=== PATIENT | female | born 1950 | race Hispanic/Latino ===

== ENCOUNTER 2017-04-22 07:27 | Day surgery (SDC) | payer MEDICARE ==
[2017-04-16 09:51] VITALS: BMI 26.5
[2017-04-22 08:15] VITALS: PULSE 55; RESP 18
[2017-04-22] MEDS ORDERED: Lidocaine 1% Inj (20ml) ONE (09:43)
[2017-04-22] MEDS ORDERED: Bupivacaine 0.5% Inj(30mL) ONE (09:43)
[2017-04-22 11:06] VITALS: BP 133/72; TEMP 97.6; O2SAT 98
--- NOTE | 2017-04-22 11:10 | PCM.SURG1 ---
Surgeon's Initial Post Op Note - Surgeon's Notes Surgeon: Jenni Chemistry Technician: Hermes Pre-Operative Diagnosis: Right knee sebaceous cyst Operative Findings: right knee sebaceous cyst Post-Operative Diagnosis: right knee sebaceous cyst Operation Performed: excision of right knee sebaceous cyst Specimen/Specimens Removed: sebaceous cyst of right knee Estimated Blood Loss: EBL {In ML}: 10 Date of Surgery/Procedure: 04/22/17 Time of Surgery/Procedure: 10:00
--- NOTE | 2017-04-22 23:11 | OP ---
PROCEDURE DATE: 04/22/2017 PREOPERATIVE DIAGNOSIS: Sebaceous cyst remnant of the right knee. POSTOPERATIVE DIAGNOSIS: Sebaceous cyst remnant of the right knee. PROCEDURE PERFORMED: 1. Excision of the sebaceous cyst remnant measuring 4.2 x 2 cm in diameter. 2. Layer closure of the wound. SURGEON: Dr. Sachin Arteaga. FORCER MAKER: Hermes. TYPE OF ANESTHESIA: Local anesthesia. ESTIMATED BLOOD LOSS: Minimal. SPECIMEN: Sebaceous cyst remnant. DESCRIPTION OF PROCEDURE: The patient is a 67-year-old female who presents with sebaceous cyst on the right knee which was initially drained and currently is a nonhealing opening, which was she brought in for excision. The patient was brought into the operating room placed on the operating table in supine position. The patient was connected to EKG, blood pressure and pulse oximetry monitors. The patient then was prepped and draped in the usual sterile fashion. Per standard time-out procedure took place and everybody in the room agreed that the patient identity, diagnosis, and procedure to be performed and they checked that the appropriate knee was marked. Once this was done, we then proceeded with injecting lidocaine and Marcaine mixture surrounding the lesion and the lesion was excised using #15 blade. Once completely excised in the elliptical fashion, the subcutaneous tissues were carefully dissected out in order to free up some tissue for closure of the wound. Once this was done, the wound was re-approximated using 3-0 Vicryl, deep dermal stitches. The skin was closed using subcuticular stitch and a reinforcement 3-0 Nylon stitch was placed in a vertical mattress fashion. A Dermabond dressing was applied of the wound. The patient tolerated the procedure well and there is no complication. The patient was awakened and transferred to recovery room for further observation. Sachin Arteaga MD
== END 2017-04-22 11:30 | disposition home or self-care (01) ==
LOC: SDS 07:27
PROVIDERS: ATTEND General Practice
DX: L72.3 Sebaceous cyst (principal); L72.0 Epidermal cyst; M25.861 Other specified joint disorders, right knee
CPT/HCPCS: 11406; 12032; 88304; J7120